=== PATIENT | male | born 1990 | race Caucasian/White ===

== ENCOUNTER 2017-11-20 20:45 | Emergency (ER) | payer OTHER ==
[~2017-11-20] VITALS: Ht 185.4 cm; Wt 81.6 kg
[2017-11-20] MEDS ORDERED: HYDROCODONE/APAP 10MG-325MG TAB PO ONE (21:00)
[2017-11-20] MEDS ORDERED: DEXAMETHASONE SOD PHOS 10 MG/1 ML VIAL INJ ONE (21:00)
[2017-11-20] MEDS ORDERED: LIDOCAINE 1% 5ML-MPF INJ ONE (21:15)
[2017-11-20 21:57] VITALS: BP 128/76
== END 2017-11-20 21:58 | disposition home or self-care (01) ==
LOC: ER 20:45
DX: R50.9 Fever, unspecified (principal); J01.00 Acute maxillary sinusitis, unspecified; J01.10 Acute frontal sinusitis, unspecified
CPT/HCPCS: 99282; J1100